=== PATIENT | female | born 2000 | race Caucasian/White ===

== ENCOUNTER 2019-10-09 08:42 | Emergency (ER) | payer BC, SELFPAY | END 2019-10-09 09:27 | disposition home or self-care (01) | LOC: ERS 08:42 | DX: G56.02 Carpal tunnel syndrome, left upper limb (principal); J45.909 Unspecified asthma, uncomplicated | CPT/HCPCS: 99283 ==

== ENCOUNTER 2019-10-10 11:25 | Emergency (ER) | payer SELFPAY | END 2019-10-10 12:00 | disposition home or self-care (01) | LOC: ERS 11:25 | DX: M25.531 Pain in right wrist (principal); F17.210 Nicotine dependence, cigarettes, uncomplicated; J45.909 Unspecified asthma, uncomplicated | CPT/HCPCS: 99281 ==